=== PATIENT | female | born 2005 | race Caucasian/White ===

== ENCOUNTER 2023-12-28 14:41 | Inpatient (IN) ==
[2023-12-28 15:43] LABS: ABS Lymphocytes 0.8 10^3/uL (1.0-4.8); ABS Monocytes 0.3 10^3/uL (0.0-0.9); ABS Neutrophils 2.2 10^3/uL (1.5-7.6); ABS Nucleated RBC 0.01 10^3/ul; Eosinophil % 0.4 %; Hematocrit 35.1 % (35-45); Hemoglobin 12.9 g/dL (11.5-14.3); Lymphocyte % 23.2 %; Mean Corpuscular Hemoglobin 31.4 pg (27-33); Mean Corpuscular Hgb Conc 36.7 g/dL (31-36); Mean Corpuscular Volume 85.7 fL (80-97); Mean Platelet Volume 7.3 fL (7.5-11.2); Nucleated Red Blood Cells % 0.3 %/100WBC (0.0-0.8); Platelet Count 201 10^3/uL (150-450); Red Cell Distribution Width 13.4 % (12-17); White Blood Count 3.4 10^3/uL (3.8-11.8)
[2023-12-28] MEDS: Lactated Ringers 1000 ml BAG 1,000 ML IV ONE (16:22)
[2023-12-28 16:36] LABS: ALT 28 U/L (7-52); AST 25 U/L (13-39); Albumin 4.5 g/dL (3.2-5.2); Alkaline Phosphatase 30 U/L (35-149); Anion Gap 7 mmol/L (2-16); Blood Urea Nitrogen 14 mg/dL (6-24); CO2 Carbon Dioxide 30 mmol/L (22-32); Calcium 9.5 mg/dL (8.6-10.3); Chloride 97 mmol/L (101-111); Creatinine, Serum 0.58 mg/dL (0.51-0.95); Globulin 2.2 g/dL (2-4); Glucose 81 mg/dL (70-100); HCG Pregnancy < 0.60 mIU/mL; Potassium 2.3 mmol/L (3.5-5.0); Sodium 134 mmol/L (135-145); Total Protein 6.7 g/dL (6.4-8.9); eGFR CKD-EPI 132.8 (>60)
[2023-12-28] MEDS: KCL 20 MEQ/100 ML IVPREMIX 20 MEQ/100 ML BAG IV SCH (17:17)
[2023-12-28 20:32] LABS: Magnesium 2.2 mg/dL (1.9-2.7)
[2023-12-29] MEDS: Lactated Ringers 1000 ml BAG 1,000 ML IV SCH (00:03)
[2023-12-29] MEDS: Thiamine 100 MG/ML 2 ml VIAL 250 MG in NS 0.9% 100 ml BAG 100 ML IV SCH (00:03)
[2023-12-29] MEDS: Multivitamins/Minerals TAB PO SCH (00:04)
[2023-12-29] MEDS: Lactated Ringers 1000 ml BAG 1,000 ML IV ONE (03:14)
[2023-12-29 03:30] LABS: Urine Appearance Clear; Urine Bilirubin Negative (Negative); Urine Blood Negative (Negative); Urine Color Colorless; Urine Glucose Negative (Negative); Urine Ketones Negative (Negative); Urine Nitrite Negative (Negative); Urine Protein Negative (Negative); Urine Specific Gravity 1.004 (1.002-1.030); Urine Urobilinogen Negative (Negative)
[2023-12-29 06:17] LABS: ABS Eosinophils 0.1 10^3/uL (0.0-0.5); ABS Lymphocytes 1.1 10^3/uL (1.0-4.8); ABS Monocytes 0.5 10^3/uL (0.0-0.9); ABS Neutrophils 1.5 10^3/uL (1.5-7.6); ABS Nucleated RBC 0.02 10^3/ul; Eosinophil % 1.7 %; Hematocrit 33.9 % (35-45); Hemoglobin 12.4 g/dL (11.5-14.3); Lymphocyte % 34.5 %; Mean Corpuscular Hemoglobin 31.7 pg (27-33); Mean Corpuscular Hgb Conc 36.4 g/dL (31-36); Mean Corpuscular Volume 87.2 fL (80-97); Mean Platelet Volume 7.6 fL (7.5-11.2); Nucleated Red Blood Cells % 0.5 %/100WBC (0.0-0.8); Platelet Count 178 10^3/uL (150-450); Red Blood Count 3.89 10^6/uL (3.63-4.92); Red Cell Distribution Width 13.8 % (12-17); White Blood Count 3.1 10^3/uL (3.8-11.8)
[2023-12-29 06:21] LABS: INR 1.23 (0.83-1.13)
[2023-12-29] MEDS: Potassium Chlor 20 meq TAB.ER PO SCH (06:29)
[2023-12-29 06:52] LABS: Albumin 4.1 g/dL (3.2-5.2); Albumin/Globulin Ratio 2.2 (1-3); Calcium 9.1 mg/dL (8.6-10.3); Creatinine, Serum 0.45 mg/dL (0.51-0.95); Globulin 1.9 g/dL (2-4); Magnesium 2.1 mg/dL (1.9-2.7); Phosphorus 2.9 mg/dL (2.5-5.0); Total Bilirubin 0.6 mg/dL (0.2-1.0); eGFR CKD-EPI 141.2 (>60)
[2023-12-29] MEDS: Potassium Chlor 20 meq TAB.ER PO ONE (07:53)
[2023-12-29] MEDS: KCL 20 MEQ/100 ML IVPREMIX 20 MEQ/100 ML BAG IV SCH (12:00)
[2023-12-29 14:30] VITALS: BP 96/56
[2023-12-29 16:02] LABS: Calcium 9.1 mg/dL (8.6-10.3); Creatinine, Serum 0.38 mg/dL (0.51-0.95); Potassium 3.8 mmol/L (3.5-5.0)
[2023-12-29] MEDS: Senna TAB 8.6 mg TAB PO SCH (16:30)
[2023-12-29] MEDS: Polyethylene Glycol 3350 17 GM PACKET PO SCH (17:09)
[2023-12-29 19:48] LABS: Phosphorus 2.9 mg/dL (2.5-5.0)
[2023-12-30] MEDS ORDERED: Multivitamins/Minerals TAB PO SCH (12:00)
== END 2023-12-29 18:30 | disposition home or self-care (01) | DRG 640 ==
LOC: EDHOLD 14:41 → ED 14:41 → MED 20:03
PROVIDERS: ADMIT Hospitalist; ATTEND Hospitalist